=== PATIENT | female | born 1950 | race Caucasian/White ===

== ENCOUNTER → 2020-01-16 | Outpatient (CLI) | payer MEDICARE ==
--- NOTE | 2020-01-16 11:16 | 2DMMODE ---
[place] [address] 2 D/M-MODE ECHOCARDIOGRAM Name: CHAPARRITA EARL Room: [facility]#: [id number] Admission: 01/16/20 Attend Phys: Robbie Wooten Discharge: Date of : 46 Date of Service: 01/16/20 1116 Report #: [id number] THIS REPORT FOR: cc: Robbie Wooten,Robbie Heller,Ceasar Morin MD [facility] ~ APPROVED REPORT Study performed: 01/16/2020 07:49:59 EXAM: Comprehensive 2D, Doppler, and color-flow Echocardiogram Patient Location: Out-Patient BSA: 1.96 HR: 104 bpm BP: 152/82 mmHg Other Information Study Quality: Fair Indications Murmur 2D Dimensions IVSd: 8.23 (7-11mm) LVOT Diam: 20.49 (18-24mm) LVDd: 42.47 mm PWd: 7.88 (7-11mm) Ascending Ao: 26.41 (22-36mm) LVDs: 22.56 (25-40mm) Aortic Root: 22.98 mm Volumes Left Atrial Volume (Systole) LA ESV Index: 11.00 mL/m2 Aortic Valve AoV Peak Rohan.: 0.92 m/s AO Peak Gr.: 3.36 mmHg LVOT Max P.57 mmHg AO Mean Gr.: 1.95 mmHg LVOT Mean P.73 mmHg LVOT Max V: 0.94 m/s AO V2 VTI: 19.88 cm LVOT Mean V: 0.60 m/s JULISSA (VTI): 3.06 cm2 LVOT V1 VTI: 18.49 cm Mitral Valve E/A Ratio: 0.79 [place] [address] 2 D/M-MODE ECHOCARDIOGRAM Name: CHAPARRITA EARL Room: [facility]#: [id number] Admission: 01/16/20 Attend Phys: Robbie Wooten Discharge: Date of : 46 Date of Service: 01/16/20 1116 Report #: [id number] MV Decel. Time: 232.06 ms MV E Max Rohan.: 0.43 m/s MV PHT: 67.30 ms MVA (PHT): 3.27 cm2 TDI E/Lateral E': 3.58 E/Medial E': 4.30 Medial E' Rohan.: 0.10 m/s Lateral E' Rohan.: 0.12 m/s Pulmonary Valve PV Peak Rohan.: 0.99 m/s PV Peak Gr.: 3.92 mmHg Left Ventricle The left ventricle is normal size. There is normal LV segmental wall motion. There is normal left ventricular wall thickness. Left ventricular systolic function is normal. The left ventricular ejection fraction is within the normal range. LVEF is 60-65%. Grade I - abnormal relaxation pattern. Right Ventricle The right ventricle is normal size. The right ventricular systolic function is normal. Atria The left atrium size is normal. The right atrium size is normal. Aortic Valve The aortic valve is normal in structure. No aortic regurgitation is present. There is no aortic valvular stenosis. Mitral Valve The mitral valve is normal in structure. Trace mitral regurgitation. No evidence of mitral valve stenosis. Tricuspid Valve The tricuspid valve is normal in structure. There is no tricuspid valve regurgitation noted. Pulmonic Valve The pulmonary valve is normal in structure. Trace pulmonic regurgitation. Great Vessels The aortic root is normal in size. IVC [place] [address] 2 D/M-MODE ECHOCARDIOGRAM Name: CHAPARRITA EARL Room: [facility]#: [id number] Admission: 01/16/20 Attend Phys: Robbie Wooten Discharge: Date of : 46 Date of Service: 01/16/20 1116 Report #: [id number] collapses >50% with inspiration. Pericardium There is no pericardial effusion. <Conclusion> The left ventricle is normal size. There is normal left ventricular wall thickness. Left ventricular systolic function is normal. The left ventricular ejection fraction is within the normal range. LVEF is 60-65%. Grade I - abnormal relaxation pattern. The right ventricle is normal size. The left atrium size is normal. The aortic valve is normal in structure. The mitral valve is normal in structure. The tricuspid valve is normal in structure. IVC is normal in size and collapses >50% with inspiration. There is no pericardial effusion. There is normal LV segmental wall motion. <ELECTRONICALLY SIGNED> By: Ceasar Dc MD, [facility] 01/16/20 1116 1116 1116 Ceasar Dc MD, FACC /INF
== END ==
LOC: M.CRD 08:00
PROVIDERS: ATTEND Family Medicine
DX: R01.1 Cardiac murmur, unspecified (principal)